=== PATIENT | female | born 1930 | race Caucasian/White ===

== ENCOUNTER 2017-07-08 22:36 | Emergency (ER) | payer MEDICARE, BC ==
[2017-07-08] MEDS ORDERED: Lidocaine/EPINEPHrine/Tetracaine Soln 5 ML Each TOP ONE (23:20)
[2017-07-08] MEDS ORDERED: Lidocaine 1% 20 ML MDV INJECT ONE (23:21)
[2017-07-08] MEDS ORDERED: Bacitracin Oint 1 GM U/D Packet TOP ONE (23:21)
[2017-07-08 23:56] VITALS: BP 106/62
--- NOTE | 2017-07-09 01:12 | EDM.PDOC ---
[id number] 4d FELL HIT HEAD Time Seen by Provider: 07/08/17 23:30 Source of Information: Reports: Patient, Police History Limitations: Reports: No Limitations - History of Present Illness INITIAL COMMENTS - FREE TEXT/NARRATIVE: pt reece garcia was loking for her flash lite she fell and hit her head and has a 2 inch lac on the forehead area. Onset: Today Duration: Hour(s): Location: Reports: Face Associated Symptoms: Reports: No Other Symptoms, Other (pt did not pass out prior to falling and was not knocked out. ) denies pain Pain Score (Numeric/FACES): 0 - Related Data Allergies Allergy/AdvReac Type Severity Reaction Status Date / Time No Known Allergies Allergy Verified 07/08/17 23:13 Home Meds: Home Meds Acetaminophen [Tylenol Arthritis Pain] 650 mg PO Q8H PRN 07/08/17 [History] Aspirin [George Chewable] 81 mg PO DAILY 07/08/17 [History] QUEtiapine [SEROquel] 25 mg PO BID 07/08/17 [History] amLODIPine [Norvasc] 10 mg PO DAILY 07/08/17 [History] atorvaSTATin [Lipitor] 10 mg PO BEDTIME 07/08/17 [History] Past Medical History HEENT History: Reports: Hard of Hearing, Impaired Vision Cardiovascular History: Reports: Heart Murmur, Hypertension Respiratory History: Reports: None Gastrointestinal History: Reports: None Genitourinary History: Reports: None [employer]INE [employer]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: Musculoskeletal History: Reports: Arthritis, Back Pain, Chronic Neurological History: Reports: CVA Psychiatric History: Reports: None Endocrine/Metabolic History: Reports: None Hematologic History: Reports: None Immunologic History: Reports: None Oncologic (Cancer) History: Reports: None Dermatologic History: Reports: None - Infectious Disease History Infectious Disease History: Reports: Chicken Pox, Measles, Mumps, Shingles - Past Surgical History Head Surgeries/Procedures: Reports: None HEENT Surgical History: Reports: Adenoidectomy, Cataract Surgery, Tonsillectomy , Other (See Below) Other HEENT Surgeries/Procedures: cornia replacement Cardiovascular Surgical History: Reports: None Respiratory Surgical History: Reports: None GI Surgical History: Reports: None Female Surgical History: Reports: None Endocrine Surgical History: Reports: None Neurological Surgical History: Reports: None Musculoskeletal Surgical History: Reports: Knee Replacement, Other (See Below) Other Musculoskeletal Surgeries/Procedures:: right knee replacement Oncologic Surgical History: Reports: None Dermatological Surgical History: Reports: None Social & Family History - Tobacco Use Smoking Status *Q: Never Smoker - Caffeine Use Caffeine Use: Reports: Coffee - Recreational Drug Use Recreational Drug Use: No ED ROS GENERAL - Review of Systems Review Of Systems: See Below Constitutional: Reports: No Symptoms HEENT: Reports: No Symptoms Respiratory: Reports: No Symptoms Cardiovascular: Reports: No Symptoms Endocrine: Reports: No Symptoms GI/Abdominal: Reports: No Symptoms : Reports: No Symptoms Skin: Reports: Other (pt has a laceration on the forehed extending into the scalp. This has been bleeding alot. She was not knocked out. ) ED EXAM, SKIN/RASH Exam: See Below Text/Narrative:: Pt has a 2 inch laceration on the forehead extending into the scalp. Exam Limited By: No Limitations General Appearance: Alert, Anxious, Mild Distress Ears: Normal External Exam Nose: Normal Inspection Throat/Mouth: Normal Inspection Head: Other (pt has a 2 inch lac on the forehead extending back into the scalp. ) Neck: Normal Inspection Respiratory/Chest: No Respiratory Distress Cardiovascular: Regular Rate, Rhythm Course - Vital Signs Last Recorded V/S: Last Vital Signs Temp 36.7 C 07/08/17 23:47 Pulse 51 L 07/08/17 23:47 Resp 16 07/08/17 23:47 BP 106/62 07/08/17 23:47 Pulse Ox 90 L 07/08/17 23:47 - Orders/Labs/Meds Meds: Medications Discontinued Medications Generic Name Dose Route Start Last Admin Trade Name Magdalena PRN Reason Stop Dose Admin Bacitracin 1 dose 07/08/17 23:21 07/08/17 23:58 Bacitracin Oint 1 Gm TOP 07/08/17 23:22 1 dose ONETIME ONE Administration Lidocaine HCl 20 ml 07/08/17 23:21 07/08/17 23:59 Xylocaine 1% INJECT 07/08/17 23:22 20 ml ONETIME ONE Administration Lidocaine/Tetracaine 5 ml 07/08/17 23:20 07/08/17 23:59 Let Soln TOP 07/08/17 23:21 5 ml ONETIME ONE Administration - Re-Assessments/Exams Free Text/Narrative Re-Assessment/Exam: 07/09/17 01:20 The area was cleansed well and let was applied. It was then infiltrated with 1 % lidocaine The wound was scrubbed further and it was closed with 5-0 chromic and 5-0 prolene and 6-0 prolene. A pressure dressing was applied. Departure - Departure Time of Disposition: 01:09 Disposition: Home, Self-Care 01 Condition: Fair Clinical Impression: Laceration - Discharge Information Instructions: Laceration Care, Adult Referrals: PCP,None [Primary Care Provider] - Forms: ED Department Discharge Care Plan Goals: , tylenol or motrin for pain. Sr in 6 days. leave the pressure dressing on tonight. It can be open to air starting tomorrow. Pt may shower tomorrow and then it needs to be kept dry, no further ointments. , keflex 500mg tid to prevent infection
== END 2017-07-09 01:30 | disposition home or self-care (01) ==
LOC: JP.ED 22:36
DX: S01.81XA Laceration without foreign body of other part of head, initial encounter (principal); I10 Essential (primary) hypertension; Z86.73 Personal history of transient ischemic attack (TIA), and cerebral infarction without residual deficits; Z98.890 Other specified postprocedural states; Z96.651 Presence of right artificial knee joint; Z98.49 Cataract extraction status, unspecified eye; Z79.82 Long term (current) use of aspirin; Z79.899 Other long term (current) drug therapy; W06.XXXA Fall from bed, initial encounter
CPT/HCPCS: 12013; 99283; A9270; 12001